=== PATIENT | female | born 1965 | race Caucasian/White ===

== ENCOUNTER 2020-07-11 11:10 | Emergency (ER) | payer OTHER ==
[2020-07-11 12:58] LABS: HEMOGLOBIN 13.7 gm/dl (12.3-15.3); RED BLOOD COUNT 4.7 M/UL (4.00-5.10); WHITE BLOOD COUNT 2.4 K/UL (4.5-11.0)
[2020-07-11 13:24] LABS: BUN/CREATININE RATIO 11 (0-10)
[2020-07-11] MEDS ORDERED: ADULT GLYCERIN1 EACH PR (15:20)
[2020-07-11] MEDS ORDERED: MAGNESIUM CITR296 ML PO (15:20)
[2020-07-11] MEDS ORDERED: GOLYTELY 40004000 ML PO (15:44)
== END 2020-07-11 15:55 | disposition home or self-care (01) ==
LOC: ER1 11:10
PROVIDERS: Physician Assistant
DX: K59.00 Constipation, unspecified (principal); D72.819 Decreased white blood cell count, unspecified; N28.89 Other specified disorders of kidney and ureter
CPT/HCPCS: 80053; 81001; 83690; 85025; 96374; 99284; J2405; J7030; Q9967

== ENCOUNTER → 2020-07-13 | Outpatient (CLI) | payer OTHER ==
[~2020-07-13] MED LIST: ADULT GLYCERIN1 EACH PR; GOLYTELY 40004000 ML PO; MAGNESIUM CITR296 ML PO
[2020-07-13 10:05] LABS: HEMOGLOBIN 13.2 gm/dl (12.3-15.3); RED BLOOD COUNT 4.5 M/UL (4.00-5.10); WHITE BLOOD COUNT 2.7 K/UL (4.5-11.0)
[2020-07-13 10:28] LABS: BUN/CREATININE RATIO 13 (0-10)
== END ==
LOC: LAB 09:44
PROVIDERS: Internal Medicine Hematology & Oncology
DX: D70.9 Neutropenia, unspecified (principal)
CPT/HCPCS: 36415; 80053; 82607; 85025; 86038

== ENCOUNTER → 2020-10-09 | Outpatient (CLI) | payer BC, OTHER ==
[2020-10-09 12:10] LABS: HEMOGLOBIN 13.3 gm/dl (12.3-15.3); RED BLOOD COUNT 4.54 M/UL (4.00-5.10); WHITE BLOOD COUNT 5.3 K/UL (4.5-11.0)
[2020-10-09 12:35] LABS: BUN/CREATININE RATIO 19 (0-10)
== END ==
LOC: LAB 10:58
PROVIDERS: Internal Medicine Hematology & Oncology
DX: D70.9 Neutropenia, unspecified (principal)
CPT/HCPCS: 36415; 80053; 82607; 82746; 85025; 86038